=== PATIENT | male | born 1985 | race Caucasian/White ===

== ENCOUNTER 2020-09-09 09:03 | Emergency (ER) | payer OTHER ==
--- NOTE | 2020-09-09 09:38 | ED Physician Documentation ---
History of Present Illness - Stated complaint Stated Complaint: CHEST PX/NUMBNESS LT ARM - Chief complaint Chief Complaint: Cardiac - History obtained from History obtained from: Patient - Additonal information Additional information: 34-year-old man, previously healthy presents with sore throat, and chest pain, shortness of breath, and nonproductive cough intermittent over the past couple weeks, progressively worsening. Patient states that the chest pain is substernal, aching, sharp, and burning, 5 out of 10, nonpleuritic, worse with exertion. He had a Covid test about 4 days ago that was negative. He does endorse Covid exposure from work. Denies smoking. Denies family history of heart attack under the age of 65. Denies leg swelling. PERC negative. Review of Systems Ten Systems: 10 systems reviewed and negative Throat: reports: Sore throat Cardiac: reports: Chest pain / pressure, Palpitations Respiratory: reports: Dyspnea, Cough PD PAST MEDICAL HISTORY - Allergies Allergies/Adverse Reactions: Allergies Allergy/AdvReac Type Severity Reaction Status Date / Time No Known Drug Allergies Allergy Verified 09/09/20 09:14 PD ED PE NORMAL - Vitals Vital signs reviewed: Yes - General General: Alert and oriented X 3, No acute distress, Well developed/nourished - HEENT HEENT: Atraumatic, PERRL, EOMI, Moist mucous membranes, Pharynx benign - Neck Neck: Supple, no meningeal sign - Cardiac Cardiac: RRR, No murmur - Respiratory Respiratory: No respiratory distress, Clear bilaterally - Abdomen Abdomen: Non tender, Non distended - Derm Derm: Normal color, Warm and dry - Extremities Extremities: No deformity - Neuro Neuro: Alert and oriented X 3 - Psych Psych: Normal mood, Normal affect Results - Vitals Vitals: Vital Signs - 24 hr 09/09/20 09:08 Temperature 36.6 C Heart Rate 86 Respiratory 16 Rate Blood Pressure 150/72 H O2 Saturation 100 Oxygen O2 Source Room air PD MEDICAL DECISION MAKING - ED course ED course: 34-year-old man presents with low risk chest pain. Heart score 0. PERC negative. He is vaccinated against COVID-19 since August 23 and has had a negative covid swab within the past 4 days, however discussed and he agreed he would like to re-swab and follow up results. Return precautions given. Follow up with [facility]. Departure - Departure Clinical Impression: Chest pain, Dyspnea, Cough Condition: Good Instructions: ED Chest Pain Atypical Unkn Cause Forms: Activity restrictions
--- NOTE | 2020-09-09 09:50 | XRAY Report ---
PROCEDURE: Chest 1 View X-Ray INDICATIONS: Chest Pain TECHNIQUE: One view of the chest was acquired. COMPARISON: None FINDINGS: Surgical changes and devices: None. Lungs and pleura: No pleural effusions or pneumothorax. Lungs are clear. Mediastinum: Mediastinal contours appear normal. Heart size is normal. Bones and chest wall: No suspicious bony lesions. Overlying soft tissues appear unremarkable. IMPRESSION: Normal for age, source of current symptoms is not seen. Reviewed by: Israel Portillo MD on 09/09/2020 9:48 AM PDT Approved by: Israel Portillo MD on 09/09/2020 9:48 AM PDT Station ID: [id number]
[2020-09-09 10:04] LABS: BASOPHILS # (AUTO) 0.1 10^3/uL (0.0-0.1); BASOPHILS % (AUTO) 1.4 %; EOSINOPHILS # (AUTO) 0.4 10^3/uL (0.0-0.7); EOSINOPHILS % (AUTO) 5.1 %; HCT - HEMATOCRIT 45.5 % (42.0-52.0); HGB - HEMOGLOBIN 15.2 g/dL (14.0-18.0); LYMPHOCYTES # (AUTO) 1.8 10^3/uL (1.5-3.5); LYMPHOCYTES % (AUTO) 25.7 %; MEAN CORPUSCULAR HEMOGLOBIN 27.8 pg (27.0-31.0); MEAN CORPUSCULAR HGB CONC 33.4 g/dL (32.0-36.0); MEAN CORPUSCULAR VOLUME 83.3 fL (80.0-94.0); MEAN PLATELET VOLUME 8.9 fL (7.4-11.4); MONOCYTES # (AUTO) 0.6 10^3/uL (0.0-1.0); MONOCYTES % (AUTO) 8.1 %; NEUTROPHILS # (AUTO) 4.2 10^3/uL (1.5-6.6); NEUTROPHILS % (AUTO) 59.4 %; PLT - PLATELET COUNT 466 10^3/uL (130-450); RED BLOOD COUNT 5.46 10^6/uL (4.70-6.10); RED CELL DISTRIBUTION WIDTH 13.2 % (12.0-15.0); WHITE BLOOD COUNT 7.1 x10^3/uL (4.8-10.8)
[2020-09-09 10:21] LABS: ALBUMIN 4.7 g/dL (3.2-5.5); ALBUMIN/GLOBULIN RATIO 1.4 (1.0-2.2); BILIRUBIN,TOTAL 1.4 mg/dL (0.2-1.0); CALCIUM 9.5 mg/dL (8.5-10.3); CREATININE 0.9 mg/dL (0.6-1.2); POTASSIUM 4.2 mmol/L (3.5-5.0); TOTAL PROTEIN 8.1 g/dL (6.7-8.2)
[2020-09-09 11:08] VITALS: BP 147/56
== END 2020-09-09 11:20 | disposition home or self-care (01) ==
LOC: ED 09:03
DX: R07.9 Chest pain, unspecified (principal); R06.00 Dyspnea, unspecified; R05 Cough; Z20.822 Contact with and (suspected) exposure to COVID-19
CPT/HCPCS: 36415; 80053; 83690; 84484; 85025; 93005; 99284